=== PATIENT | male | born 1950 | race Caucasian/White ===

== ENCOUNTER 2019-09-01 05:45 | Outpatient (CLI) | payer MEDICARE, BC, SELFPAY ==
[2019-09-01 15:31] LABS: SARS-CoV-2 RNA PCR Negative
== END 2019-09-01 05:46 | disposition home or self-care (01) ==
LOC: ANHCOVIDDT 05:46
PROVIDERS: PCP Family Medicine; Visit Provider Internal Medicine Gastroenterology
DX: Z01.818 Encounter for other preprocedural examination (principal); Z11.59 Encounter for screening for other viral diseases
CPT/HCPCS: 87635; C9803; U0003

== ENCOUNTER 2019-09-03 00:49 | Day surgery (SDC) | payer MEDICARE, BC, SELFPAY ==
[2019-08-28 12:28] VITALS: BMI 35.2
[2019-09-03 08:43] VITALS: BP 130/92; PULSE 72; RESP 17; TEMP 36.6; O2SAT 100
--- NOTE | 2019-09-03 08:56 | WPDANESEPPF ---
Anes - Initial Pre Proc Eval Procedure: Operation Date: 09/03/19 09:30 Proposed Procedures p Esophagogastroduodenoscopy - Eligio Frances MD Date/Time: 09/03/19 08:56 Surgeon: Eligio Frances MD Pre Op Diagnosis: DYSPHAGIA Patient Data Age: 69 Gender: M Height: 5 ft 9 in Weight: 102.6 kg Last Vital Signs Temp 36.6 C 09/03/19 08:43 Pulse 72 09/03/19 08:43 Resp 17 09/03/19 08:43 BP 130/92 H 09/03/19 08:43 Pulse Ox 100 09/03/19 08:43 Allergies Allergy/AdvReac Type Severity Reaction Status Date / Time No Known Allergies Allergy Mild Verified 09/03/19 08:40 Home Medications Medication Instructions Recorded Confirmed Type hydrochlorothiazide 25 mg tablet 25 mg PO DAILY #90 tablet 04/01/19 08/28/19 Rx mometasone-formoterol [Dulera] 200 inh INHALATION DAILY 08/28/19 08/28/19 History quinapril 40 mg PO DAILY 08/28/19 08/28/19 History Patient hx anesthesia problems: none Family hx anesthesia problems: none PMFSH Past Medical History Medical History (Updated 08/25/19 @ 14:32 by Javi Hollingsworth MD) Other polyp of sinus Family History Family History Father Hypertension Family history of elevated blood lipids Family history of cardiovascular disease Diabetes mellitus Mother Hypertension Family history of malignant neoplasm of bone Social History Social History Smoking status: Current every day smoker Second hand tobacco smoke exposure: Yes Alcohol intake: never Gender identity (if verbalized by the patient): Male Anes - Eval Final PreProcedure Day of Procedure 09/03/19 08:56 Patient weight: obese Heart: regular rate and rhythm Lungs: clear to auscultation Airway: Mallampati scale class II Neurological: alert and oriented Last oral intake: >/= 8 hours ASA classification: III Emergent: no Anesthetic plan: proceed Anesthesia type and monitoring: general ETT Informed Consent: The patient's anesthetic plan and its attendant risks and benefits were discussed with the patient/family/POA. Questions were solicited and answers provided to the satisfaction of the patient/family/POA.
[2019-09-03] MEDS: LACTATED RINGERS 1,000 ML 150 ML IV CONT (08:59)
--- NOTE | 2019-09-03 09:18 | WPDGICN ---
Assessment and Plan Assessment and plan (1) Dysphagia: Code(s): R13.10 - Dysphagia, unspecified Status: Acute Assessment and Plan: Plan is to proceed with EGD because of dysphagia. Will reassess the status of reflux esophagitis. Patient currently takes proton pump inhibitor intermittently. He may benefit from daily use of PPI. Anti-reflux measures are strongly encourage. Further recommendations may be given after endoscopy. (2) GERD (gastroesophageal reflux disease): Code(s): K21.9 - Gastro-esophageal reflux disease without esophagitis Status: Acute GI Consult Note Consult date/time: 09/03/19 09:18 HPI: Telly Gonzalez Jr. is a 69 year old male Seen in evaluation at the request of Dr. Hakan Hollingsworth. Patient has a long history of GE reflux disease. Previously treated with Prilosec 20 mg p.o. daily. He is recently may discontinue this medications. He does occasionally take as needed. Over the last 1 month has had increase in substernal burning and heartburn. During this month he has noted food catching in mid substernal portion of the chest. He states this is worse with solid foods period is worse with spicy jesus ds. Past medical history is also significant for hypertension. Review of Systems Review of Systems: All systems reviewed & are unremarkable except as noted in HPI and below PMFSH Past Medical History Medical History Other polyp of sinus Family History Family History Father Hypertension Family history of elevated blood lipids Family history of cardiovascular disease Diabetes mellitus Mother Hypertension Family history of malignant neoplasm of bone Social History Social History Smoking status: Current every day smoker Second hand tobacco smoke exposure: Yes Alcohol intake: never Gender identity (if verbalized by the patient): Male Meds Home Medications and Allergies Home Medications Medication Instructions Recorded Confirmed Type hydrochlorothiazide 25 mg tablet 25 mg PO DAILY #90 tablet 04/01/19 08/28/19 Rx mometasone-formoterol [Dulera] 200 inh INHALATION DAILY 08/28/19 08/28/19 History quinapril 40 mg PO DAILY 08/28/19 08/28/19 History Allergies Allergy/AdvReac Type Severity Reaction Status Date / Time No Known Allergies Allergy Mild Verified 09/03/19 08:40 Vital Signs Vital Signs - 24 hr 09/03/19 08:43 Temperature 36.6 C Pulse Rate 72 Respiratory Rate 17 Blood Pressure 130/92 H Pulse Oximetry 100 Exam Narrative: Exam Narrative: Physical exam reveals patient to be alert. Oriented x3. Vital signs stable. HEENT exam unremarkable. Lungs are clear to auscultation and percussion. Heart is without murmur or extra sounds. Abdominal exam bowel sounds are present soft nontender with no organomegaly. Rectal exam is deferred today.
[2019-09-03] MEDS: BENZOCAINE (*SP) 60 ML SPRAY CAN (HURRICAINE) 1 SPRAY MUCOUS MEM (09:51)
[2019-09-03 10:01] VITALS: BP 122/80; PULSE 68; RESP 24; O2SAT 99
[2019-09-03 10:10] VITALS: BP 116/75; PULSE 68; RESP 22; O2SAT 100
[2019-09-03 10:21] VITALS: BP 127/83; PULSE 57; RESP 21; O2SAT 100
== END 2019-09-03 10:36 | disposition home or self-care (01) ==
PROVIDERS: PCP Family Medicine; Visit Provider Internal Medicine Gastroenterology
PROC: 0DJ08ZZ Inspection of Upper Intestinal Tract, Via Natural or Artificial Opening Endoscopic (ICD-10-PCS; CPT 43235; principal; 2019-09-03 09:30)
DX: Q39.4 Esophageal web (principal); K21.9 Gastro-esophageal reflux disease without esophagitis; I10 Essential (primary) hypertension; F17.210 Nicotine dependence, cigarettes, uncomplicated; E66.9 Obesity, unspecified; Z68.33 Body mass index [BMI] 33.0-33.9, adult
CPT/HCPCS: 43450; 43235; J2704; J7120

== ENCOUNTER 2019-09-30 14:41 | Outpatient (CLI) | payer MEDICARE, BC, SELFPAY ==
--- NOTE | ~2019-09-30 | CT_ITS ---
EXAMINATION: CT lung screening DATE: 09/30/2019 16:34 INDICATION: Nicotine dependence TECHNIQUE: Computed tomography (CT) of the chest was performed without intravenous contrast. The dose -length product was 221.35 mGy-cm. Automated exposure control and iterative reconstruction technique were employed. COMPARISON: Chest x-ray dated 08/27/2007 FINDINGS: Heart size normal. No significant pleural or pericardial effusion. Gallbladder is present. The liver, spleen, pancreas, adrenal glands are unremarkable. There is atherosclerosis of the aorta a nd coronary arteries. No thoracic lymphadenopathy. There is a 5 mm groundglass nodule left upper lobe , image 37. There is a 3 mm groundglass nodule left upper lobe, image 61. There is a 4 mm left upper lobe nodule, image 66. There is a 4 mm right upper lobe nodule, image 36. There is a 6 mm left upper lobe nodule, image 40. There is a 3 mm left upper lobe nodule, image 43. No endobronchial lesions. Mi ld thoracic spondylosis. No acute osseous abnormality. IMPRESSION: 1. Lung-RADS category 3: Probably benign. Further evaluation is recommended with noncontrast low-dose chest CT in 6 months. Reviewed, dictated and finalized at location A. IMPRESSION: 1. Lung-RADS category 3: Probably benign. Further evaluation is recommended wit h noncontrast low-dose chest CT in 6 months.
== END 2019-09-30 14:42 | disposition home or self-care (01) ==
PROVIDERS: PCP Family Medicine; Visit Provider Family Medicine
DX: Z12.2 Encounter for screening for malignant neoplasm of respiratory organs (principal); Z87.891 Personal history of nicotine dependence
CPT/HCPCS: G0297

== ENCOUNTER 2022-12-15 10:57 | Emergency (ER) | payer MEDICARE, BC, SELFPAY ==
[2022-12-15] VITALS (8 sets, daily range): BP systolic 118–122; BP diastolic 59–81; PULSE 53–78; RESP 14–16; TEMP 36.4; O2SAT 96–100
--- NOTE | ~2022-12-15 | CT_ITS ---
EXAMINATION: CT abdomen pelvis w con DATE: 12/15/2022 15:07 INDICATION: Abdomen pain TECHNIQUE: Computed tomography (CT) of the abdomen and pelvis was performed with 100 cc Omnipaque 350 intravenous contrast. The dose-length product was 1115.91 mGy-cm. Automated exposure control and ite rative reconstruction technique were employed. COMPARISON: None. FINDINGS: Fatty infiltration of the liver. Several subcentimeter hypodensities of the liver, most lik sushil benign cysts. The spleen, pancreas, adrenal glands are unremarkable. There are bilateral renal cy sts. Normal appendix. There is atherosclerosis of the aorta without aneurysm or dissection. There is atherosclerosis and narrowing of the iliac arteries. Nonobstructive bowel pattern. No lymphadenopathy. Gallbladder is present. No free air or free fluid. Moderate lumbar spondylosis. IMPRESSION: 1. No acute abdominal abnormality. Reviewed, dictated and finalized at location B.
--- NOTE | 2022-12-15 13:22 | ED.GENADULT ---
HPI - General Adult General Chief complaint: Unspecified Stated complaint: COnstipation Time Seen by Provider: 12/15/22 13:22 History of Present Illness HPI narrative: Patient is a 72-year-old male with history of COPD, hypertension here with abdominal distention and constipation. patient notes that his last bowel movement was approximately 7 days ago. He has been using Dulcolax once daily for the last 3 days after consulting with his primary care doctor. He notes that he has some known hemorrhoids, not actively bleeding. These hemorrhoids have caused him some pain when he attempts to defecate. He notes some associated abdominal distention, mild diffuse pain. No difficulty urinating. No dysuria or hematuria. No fever chills. No prior abdominal surgeries. He continues to pass a small amount of flatulence but this has also decreased. He denies any nausea or vomiting. He has had one prior Colonoscopy, unknown amount of years ago. Related Data Allergies Allergy/AdvReac Type Severity Reaction Status Date / Time No Known Allergies Allergy Mild Verified 11/09/22 13:45 Review of Systems Review of Systems: GENERAL: Denies fever, chills, or sweats. EYES: Denies visual changes, redness, or discharge. ENT: Denies rhinorrhea, congestion, sore throat, or otalgia. CARDIOVASCULAR: Denies chest pain, palpitations, or edema. RESPIRATORY: Denies cough or dyspnea. GASTROINTESTINAL: abdominal pain, constipation, no nausea, vomiting, or diarrhea. GENITOURINARY: Denies dysuria or hematuria. SKIN: Denies rash or itching. MUSCULOSKELETAL: Denies back pain, joint pain, or myalgia. [facility] Past Medical History Medical History (Updated 12/15/22 @ 17:39 by Alicia Anglin MD) Other polyp of sinus Family History Family History Father Hypertension Family history of elevated blood lipids Family history of cardiovascular disease Diabetes mellitus Mother Hypertension Family history of malignant neoplasm of bone Social History Social History Social History: Caffeine- coffee/tea/soda Smoking packs per day: 2 Smoking cigarettes per day: 40.0 Years smoked: 50 Smoking pack-years: 100.00 Smoking status: Current every day smoker Tobacco type: cigarettes Alcohol intake: never Substance use: current Substance use type: marijuana Lack of Transportation: No Lack of Food: Never True Current Housing: I Have Housing Concerned About Future Housing: No Difficulty Paying Gas/Electric Bills: YES Difficulty Paying for Meds: No Currently Unemployed: No Education: High School Diploma/GED Difficulty w/ Childcare or Family Care: No Gender identity (if verbalized by the patient): Male Exam Narrative: GENERAL: Well-appearing, well-nourished, and in no acute distress. HEAD: Normocephalic, atraumatic. EYES: PERRLA and EOMI. ENT: Nares clear. Mucous membranes moist. NECK: Supple. CHEST: Clear to auscultation. No respiratory distress. HEART: Regular rate and rhythm. Normal peripheral pulses. ABDOMEN: Soft, nontender, nondistended. EXTREMITIES: Normal range of motion. No edema. SKIN: Warm, dry, no rash. NEURO: No focal deficits. Alert and oriented x3. PSYCH: Normal mood and affect. Course Course Emergency Course: Chart review performed. Patient is reportedly here with constipation x 7 days. He had an office visit on 10/30/22. He was there for a follow up visit for hypertension. Triage vitals grossly normal. Patient seen evaluated. Here with abdominal pain, discomfort, rectal pain and constipation. Given age and lack of consistent screening colonoscopies will do CT abdomen pelvis to evaluate for possible obstruction versus mass. Will additionally basic lab work. Lab work and imaging reviewed. WBC of 11.1. Electrolytes grossly normal aside from a potassium of 2.8. Will replete.
[2022-12-15 14:07] LABS: Basophils Absolute Auto 0.1 K/mm3 (0.0-0.1); Basophils Percent Auto 0.8 % (0.2-1.2); Eosinophils Absolute Auto 0.1 K/mm3 (0-0.3); Eosinophils Percent Auto 0.7 % (0-4.4); Hematocrit 44.4 % (42.0-52.0); Hemoglobin 14.8 g/dL (14.0-18.0); Immature Granulocyte Absolute 0.11 K/mm3 (0.00-0.031); Immature Platelet Fraction Pct 6.1 % (0.9-11.2); Lymphocytes Absolute Auto 1.41 K/mm3 (0.9-3.2); Lymphocytes Percent Auto 12.7 % (18.3-44.2); Mean Corpuscular HGB Conc 33.3 g/dl (32-36); Mean Corpuscular Hemoglobin 27.7 pg (26-34); Mean Platelet Volume 10.2 fl (7.4-10.4); Monocytes Absolute Auto 0.7 K/mm3 (0.1-0.6); Monocytes Percent Auto 6.4 % (2.6-8.5); Neutrophils Absolute Auto 8.7 K/mm3 (1.3-6.7); Neutrophils Percent Auto 78.4 % (45.5-73.1); Platelet Count Result 324 k/mm3 (150-375); Red Blood Count 5.35 M/mm3 (4.6-6.20); Red Cell Distribution Width 17.2 % (11.5-14.5); White Blood Count 11.1 K/mm3 (4.5-10.0)
[2022-12-15 15:29] LABS: Alanine Aminotransferase 23 U/L (6-50); Albumin Level 4.3 g/dL (3.5-5.1); Alkaline Phosphatase 94 U/L (38-126); Anion Gap 6 mmol/L (8-16); Aspartate Amino Transferase 24 U/L (17-59); Bilirubin,Total 0.7 mg/dL (0.2-1.3); Blood Urea Nitrogen 7 mg/dL (9-20); CRP 0.8 mg/dL (<1.0); Calcium 8.8 mg/dL (8.4-10.2); Carbon Dioxide 26 mmol/L (22-30); Chloride 98 mmol/L (98-107); Estimated CRCL calculation 101 ml/min; Estimated Glomerular Filt Rate > 60; Glucose 103 mg/dL (65-110); Magnesium 2.4 mg/dL (1.6-2.3); Potassium 2.8 mmol/L (3.4-5.0); Sodium 130 mmol/L (137-145)
[2022-12-15 15:45] LABS: Appearance Urine Clear (Clear); Bilirubin Urine Negative (Negative); Blood Urine Negative (Negative); Color Urine Yellow (Yellow); Glucose Urine UA Negative (Negative); Ketones Urine Negative (Negative); Leukocyte Esterase Ur Negative LEU/UL (Negative); Nitrate Urine Negative (Negative); Protein Urine Negative (Negative); Specific Grav Ur 1.006 (1.001-1.035); Urobilinogen Urine 0.2 mg/dL (<2.0); pH Urine 7.5 (5.0-9.0)
[2022-12-15 15:51] LABS: Add Urine Microscopic? NO
[2022-12-15] MEDS: BISACODYL 10 MG SUPPOSITORY RECTAL (18:06)
[2022-12-15] MEDS: POTASSIUM BICARBONATE 25 MEQ TABEF 50 MEQ PO (18:08)
[2022-12-15] MEDS: MAGNESIUM CITRATE 300 ML BTL 150 ML PO (18:08)
== END 2022-12-15 18:25 | disposition home or self-care (01) ==
PROVIDERS: Emergency Provider Student in an Organized Health Care Education/Training Program; PCP Family Medicine
DX: E87.6 Hypokalemia (principal); K59.00 Constipation, unspecified; J44.9 Chronic obstructive pulmonary disease, unspecified; I10 Essential (primary) hypertension; F17.210 Nicotine dependence, cigarettes, uncomplicated
CPT/HCPCS: 36415; 74177; 80053; 81003; 83735; 85025; 85055; 86140; 99284; A9270; Q9967